=== PATIENT | female | born 1990 | race Caucasian/White ===

== ENCOUNTER → 2020-03-06 | Outpatient (CLI) | payer MEDICAID ==
--- NOTE | 2020-03-06 09:42 | RADIOLOGY REPORT (SQ) ---
EXAM DESCRIPTION: KNEE LEFT 3 VIEWS IMAGES COMPLETED DATE/TIME: 03/06/2020 9:25 am REASON FOR STUDY: PAIN IN LEFT KNEE M25.562 PAIN IN LEFT KNEE M54.5 LOW BACK PAIN COMPARISON: None. NUMBER OF VIEWS: Four views. TECHNIQUE: AP, lateral, and both oblique radiographic images acquired of the left knee. LIMITATIONS: None. FINDINGS: MINERALIZATION: Normal. BONES: No acute fracture or dislocation. No worrisome bone lesions. JOINT: Joint space narrowing in both the medial and lateral compartments. No joint effusion. SOFT TISSUES: No soft tissue swelling. No radio-opaque foreign body. OTHER: No other significant finding. IMPRESSION: Joint space narrowing in the medial and lateral compartments. No joint effusion. TECHNICAL DOCUMENTATION: JOB ID: [id number] 2010 [employer]- All Rights Reserved Reading location - IP/workstation name: [email or web address]
--- NOTE | 2020-03-06 09:43 | RADIOLOGY REPORT (SQ) ---
EXAM DESCRIPTION: LUMBAR SPINE COMPLETE IMAGES COMPLETED DATE/TIME: 03/06/2020 9:25 am REASON FOR STUDY: LBP M25.562 PAIN IN LEFT KNEE M54.5 LOW BACK PAIN COMPARISON: None. NUMBER OF VIEWS: Five views including obliques. TECHNIQUE: AP, lateral, oblique, and sacral radiographic images acquired of the lumbar spine. LIMITATIONS: None. FINDINGS: MINERALIZATION: Normal. SEGMENTATION: Normal. No transitional anatomy. ALIGNMENT: Straightening of the normal lumbar lordosis. Mild scoliosis with concavity toward the rig ht. VERTEBRAE: Maintained height. No fracture or worrisome bone lesion. DISCS: Preserved height. No significant osteophytes or end plate irregularity. POSTERIOR ELEMENTS: Pedicles and facets are intact. No pars defect or posterior arch defects. HARDWARE: None in the spine. PARASPINAL SOFT TISSUES: Normal. PELVIS: Intact as visualized. No fractures or worrisome bone lesions. SI joints intact. OTHER: No other significant finding. IMPRESSION: Mild scoliosis and straightening of the normal lumbar lordosis. No significant disc deg enerative disease. TECHNICAL DOCUMENTATION: JOB ID: [id number] 2010 [employer]- All Rights Reserved Reading location - IP/workstation name: [email or web address]
== END ==
LOC: OD 08:39
PROVIDERS: ATTEND Physician Assistant
DX: M25.562 Pain in left knee (principal); M41.86 Other forms of scoliosis, lumbar region; M54.5 Low back pain
CPT/HCPCS: 72110

== ENCOUNTER 2020-05-24 19:07 | Emergency (ER) | payer MEDICAID ==
--- NOTE | 2020-05-24 20:29 | ER Document Report ---
ED Medical Screen (RME) - General Chief Complaint: Suicidal Ideation Stated Complaint: SUICIDAL IDEATION Primary Care Provider: YELENA VELASQUEZ PA-C [Primary Care Provider] - Follow up as needed - HPI Notes: 05/24/20 20:25 Rapid Medical Exam HPI: Patient is 30-year-old female that presents to the ER with her caregiver who reports suicidal ideation. Patient has a history of schizophrenia and an e xtensive psychiatric history and prior psychiatric hospitalizations. Caregiver says patient has been having "tantrums" today and became upset tonight and made a statement that she was going to kill herself and picked up a mirror and began walking outside. She has a history of cutting and has attempted suicide by cutting her wrist in the past. She did not cut herself tonight and made no other direct attempt at taking her life. Dinorah reports paranoia as well as visual and auditory hallucinations. Patient has been compliant with all her psychiatric medications per her caregiver. Patient will not contract for safety in the ED. Patient very preoccupied about returning to her caregiver Bhavna's house- which she agreed to once she has sought further psychiatric care. Physical Exam: GENERAL: Well-appearing, well-nourished and in mild distress. HEAD: Atraumatic, normocephalic. ENT: Moist mucous membranes. RESP: Respirations even and unlabored CV- Regular rate. NEURO: No focal neurological deficits. Moves all extremities spontaneously and on command. My involvement in this patients care was limited to a rapid initial assessment. A comprehensive ED assessment and evaluation of the patient, analysis of test results, treatment, and completion of the medical decision making process will be performed by other ER providers. Past Medical History - Social History Chew tobacco use (# tins/day): No Frequency of alcohol use: None Drug Abuse: None Physical Exam - Vital signs Vitals: Temp Pulse Resp BP Pulse Ox 97.7 F 92 22 H 125/74 96 05/24/20 19:17 05/24/20 19:17 05/24/20 19:17 05/24/20 19:17 05/24/20 19:17 Course - Vital Signs Vital signs: Temp Pulse Resp BP Pulse Ox 97.7 F 92 22 H 125/74 96 05/24/20 19:17 05/24/20 19:17 05/24/20 19:17 05/24/20 19:17 05/24/20 19:17 Doctor's Discharge - Discharge Referrals: YELENA VELASQUEZ PA-C [Primary Care Provider] - Follow up as needed
[2020-05-24] MEDS ORDERED: IBUPROFEN 400 MG TABLET PO ONE (20:46)
--- NOTE | 2020-05-24 20:49 | ER Document Report ---
ED Psych Disorder / Suicide - General Chief Complaint: Suicidal Ideation Stated Complaint: SUICIDAL IDEATION Time Seen by Provider: 05/24/20 20:34 Primary Care Provider: YELENA VELASQUEZ PA-C [Primary Care Provider] - Follow up as needed - [facility] Notes: Patient is a 30 y/o female with a hx of schizophrenia who presents with suicidal ideation. Patient became upset this evening and made a statement that she was going to kill herself. She then picked up a mirror and began to walkout side. She was stopped before anything further happened. Patient has a hx of cutting and has attempted suicide by cutting her wrist in the past. Patient did not cut herself tonight and made no other direct attempt in taking her life. Patient denies SI, HI and hallucination at this time. Past Medical History - General Information source: Patient - Social History Smoking Status: Unknown if Ever Smoked Chew tobacco use (# tins/day): No Frequency of alcohol use: None Drug Abuse: None Family History: Reviewed & Not Pertinent Patient has homicidal ideation: No Review of Systems - Review of Systems Constitutional: No symptoms reported EENT: No symptoms reported Cardiovascular: No symptoms reported Respiratory: No symptoms reported Gastrointestinal: No symptoms reported Genitourinary: No symptoms reported Female Genitourinary: No symptoms reported Musculoskeletal: No symptoms reported Skin: No symptoms reported Hematologic/Lymphatic: No symptoms reported Neurological/Psychological: See HPI Physical Exam - Vital signs Vitals: Temp Pulse Resp BP Pulse Ox 97.7 F 92 22 H 125/74 96 05/24/20 19:17 05/24/20 19:17 05/24/20 19:17 05/24/20 19:17 05/24/20 19:17 - Notes Notes: PHYSICAL EXAMINATION: VITALS: Vitals reviewed and within normal limits. GENERAL: Well-appearing, well-nourished and in no acute distress. HEAD: Atraumatic, normocephalic. EYES: Pupils equal, round, and reactive to light, extraocular movements intact, sclera anicteric, conjunctiva are normal. ENT: Nares patent. Moist mucous membranes. Oropharynx clear without exudates. NECK: Normal range of motion, supple without lymphadenopathy. LUNGS: Breath sounds clear to auscultation bilaterally and equal. No wheezes, rales, or rhonchi. HEART: Regular, rate, and rhythm without murmurs. ABDOMEN: Soft, nontender, normoactive bowel sounds. No guarding, no rebound. No masses appreciated. EXTREMITIES: Normal range of motion, no pitting or edema. No cyanosis. NEUROLOGICAL: No focal neurological deficits. Moves all extremities spontaneously and on command. PSYCH: Normal mood, normal affect. SKIN: Warm, Dry, normal turgor, no rashes or lesions noted. Course - Re-evaluation Re-evalutation: Patient is a 30 y/o female with a hx of schizophrenia who presents with suicidal ideation. Vital signs are stable and within normal limits. Physical exam is normal with no signs recent cutting or other self-harming behavior. Patient placed on IVC papers due to danger to self. 05/24/20 23:42 CBC, CMP and UA are unremarkable and within normal limits. UDS negative. Salicylate, Tylenol, and alcohol levels are all negative. Patient is medically cleared and awaiting psych consultation in the morning. - Vital Signs Vital signs: Temp Pulse Resp BP Pulse Ox 97.7 F 92 14 125/74 100 05/24/20 23:29 05/24/20 19:17 05/24/20 23:29 05/24/20 19:17 05/24/20 23:29 - Laboratory Results Result Diagrams: 05/24/20 22:10 05/24/20 22:10 Laboratory Results Interpreted: 05/24/20 05/24/20 22:10 22:10 RBC 3.59 L Hgb 11.2 L Hct 32.7 L RDW 14.3 H Creatinine 0.49 L Salicylates < 1.0 L Acetaminophen < 10 L Critical Laboratory Results Reviewed: No Critical Results - Radiology Results Critical Radiology Results Reviewed: No Critical Results - EKG Interpretation by Me Additional EKG results interpreted by me: Sinus rhythm with a rate of 76. QTc 459. Normal axis. T wave flattening in anterior leads. No ST segment changes in consecutive leads. Discharge - Discharge Clinical Impression: Suicidal ideation Schizophrenia Qualifiers: Schizophrenia type: unspecified Qualified Code(s): F20.9 - Schizophrenia, unspecified Condition: Stable Disposition: PSYCH HOSP/UNIT Referrals: YELENA VELASQUEZ PA-C [Primary Care Provider] - Follow up as needed
[2020-05-24 22:38] LABS: ABSOLUTE EOSINOPHILS # (AUTO) 0.4 10^3/uL (0.0-0.6); ABSOLUTE MONOCYTES (AUTO) 0.5 10^3/uL (0.1-1.4); ABSOLUTE NEUT (AUTO) 5.5 10^3/uL (1.7-8.2); BASOPHILS % (AUTO) 0.5 % (0-2); EOSINOPHILS % (AUTO) 4.4 % (0-6); HEMATOCRIT 32.7 % (36.0-47.0); HEMOGLOBIN 11.2 g/dL (12.0-15.5); LYMPHOCYTES % (AUTO) 24.1 % (13-45); MEAN CORPUSCULAR HEMOGLOBIN 31.3 pg (27.0-33.4); MEAN CORPUSCULAR HGB CONC 34.4 g/dL (32.0-36.0); MEAN CORPUSCULAR VOLUME 91 fl (80-97); PLATELET COUNT 259 10^3/uL (150-450); RED BLOOD COUNT 3.59 10^6/uL (3.72-5.28); RED CELL DISTRIBUTION WIDTH 14.3 % (11.5-14.0); TOTAL CELLS COUNTED % (AUTO) 100 %; WHITE BLOOD COUNT 8.4 10^3/uL (4.0-10.5)
[2020-05-24 22:53] LABS: ALBUMIN 3.9 g/dL (3.5-5.0); ALKALINE PHOSPHATASE 73 U/L (38-126); ANION GAP 6 (5-19); ASPARTATE AMINO TRANSFERASE 20 U/L (14-36); BILIRUBIN,DIRECT 0.2 mg/dL (0.0-0.4); BILIRUBIN,TOTAL 0.2 mg/dL (0.2-1.3); BLOOD UREA NITROGEN 10 mg/dL (7-20); CALCIUM 8.7 mg/dL (8.4-10.2); CARBON DIOXIDE 27 mmol/L (22-30); CHLORIDE 106 mmol/L (98-107); GLUCOSE 92 mg/dL (75-110); POTASSIUM 4.2 mmol/L (3.6-5.0); TOTAL PROTEIN 6.6 g/dL (6.3-8.2)
[2020-05-24 22:53] LABS: APPEARANCE,URINE SLIGHTLY-CLOUDY; BILIRUBIN,URINE NEGATIVE (NEGATIVE); COLOR,URINE YELLOW; GLUCOSE, URINE NEGATIVE (NEGATIVE); KETONES,URINE NEGATIVE (NEGATIVE); LEUKOCYTE ESTERASE,URINE NEGATIVE (NEGATIVE); NITRITE,URINE NEGATIVE (NEGATIVE); PROTEIN,URINE NEGATIVE (NEGATIVE); URINE SPECIFIC GRAVITY 1.019; UROBILINOGEN,URINE NEGATIVE mg/dL (<2.0)
[2020-05-24 22:54] LABS: ACETAMINOPHEN < 10 ug/mL (10-30); ALCOHOL < 10 mg/dL (NONE DETECTED); SALICYLATE < 1.0 mg/dL (2.0-20.0)
[2020-05-24 23:08] LABS: URINE AMPHETAMINES SCREEN NEGATIVE; URINE BARBITURATES SCREEN NEGATIVE; URINE BENZODIAZEPINES SCREEN NEGATIVE; URINE COCAINE SCREEN NEGATIVE; URINE MARIJUANA (THC) SCREEN NEGATIVE; URINE METHADONE SCREEN NEGATIVE; URINE PHENCYCLIDINE SCREEN NEGATIVE
--- NOTE | 2020-05-25 08:33 | EKG REPORT ---
SEVERITY:- BORDERLINE ECG - SINUS RHYTHM INFERIOR Q WAVES, PROBABLY NORMAL VARIATION BORDERLINE T ABNORMALITIES, ANTERIOR LEADS : Confirmed by: Mary Carmen Borja MD 25-May-2020 08:32:37
--- NOTE | 2020-05-25 08:40 | ER Document Report ---
Doctor's Note Notes: 05/25/20 08:39 I reviewed the prior records. Report was received on the patient. Patient is medically cleared by prior provider. Patient's lab work does not show any acute abnormalities. Awaiting psychiatric consult
--- NOTE | 2020-05-25 10:52 | PSYCHOLOGICAL NOTE ---
Psych Note - Psych Note Date seen by psych provider: 05/25/20 Time seen by psych provider: 10:15 Psych Note: Reason for Consult:Suicidal comment Consent Permissions: Bhavna Patient arrived to [facility] ED via IVC Criteria per [place] GS 122C Dangerous to others Within the relevant past the individual No has inflicted or attempted to inflict or threatened to inflict serious bodily harm on another AND No that there is a reasonable probability that this conduct will be repeated as there is an absence of supervision or structure to prevent. OR No has acted in such a way as to create a substantial risk of serious bodily harm to another AND No that there is a reasonable probability that this conduct will be repeated as there is an absence of supervision or structure to prevent. OR No has engaged in extreme destruction of property AND NO that there is a reasonable probability that this conduct will be repeated as there is an absence of supervision or structure to prevent. Previous episodes of dangerousness to others, when applicable, may be considered when determining reasonable probability of future dangerous conduct. Clear, cogent, and convincing evidence that an individual has committed a homicide in the relevant past is prima facie evidence of dangerousness to others. Dangerous to self Within the relevant past the individual has done any of the following: acted in such a way as to show ALL of the following: No The individual would be unable without care, supervision, and the cont inued assistance of others not otherwise available, to exercise self-control, judgment, and discretion in the conduct of the individual's daily responsibilities and social relations or to satisfy the individual's need for nourishment, personal or medical care, fdc, or self-protection and safety. AND No There is a reasonable probability of the individual suffering serious physical debilitation within the near future unless adequate treatment is given. A showing of behavior that is grossly irrational, of actions that the individual is unable to control, of behavior that is grossly inappropriate to the situation, or of other evidence of severely impaired insight and judgment shall create a prima facie inference that the individual is unable to care for himself or herself. OR Yes has attempted suicide or threatened suicide AND No that there is a reasonable probability of suicide unless adequate treatment is given as there is an absence of supervision or structure to prevent suicide of patient who has made an attempt, serious gesture or threat. Patient reports OR No has mutilated himself or herself or attempted to mutilate himself or herself AND No that there is a reasonable probability of serious self-mutilation unless adequate treatment is given as there is an absence of supervision or structure to prevent. NOTE: Previous episodes of dangerousness to self, when applicable, may be considered when determining reasonable probability of physical debilitation, suicide, or self-mutilation. Impression\plan: Patient is recommended for rescind of 24 hour petition for evaluation and is cleared from acute psychiatric services; paperwork is signed and placed in patient's chart. Dr. Hayden was consulted to care management of this patient; attending physicians in agreement with recommendations and disposition.
[2020-05-25] MEDS ORDERED: ACETAMINOPHEN 325 MG TABLET PO ONE (11:13)
[2020-05-25 11:27] VITALS: BP 132/79
== END 2020-05-25 11:35 | disposition home or self-care (01) ==
LOC: ER 19:07
DX: R45.851 Suicidal ideations (principal); F20.9 Schizophrenia, unspecified; Z91.5 Personal history of self-harm; Z79.899 Other long term (current) drug therapy
CPT/HCPCS: 93005; 99285; 36415; 80307 ×4; 84703; 85025; 80053; 81001; 93010; J3490 ×2